=== PATIENT | male | born 1955 | race Caucasian/White ===

== ENCOUNTER 2017-05-22 07:01 | Outpatient (CLI) | payer OTHER ==
[2017-05-22 08:01] LABS: eGFR (African) > 60; eGFR (Non-African) > 60
== END 2017-05-22 07:10 ==
LOC: LAB 07:01
PROVIDERS: ATTEND Urology
DX: Z79.01 Long term (current) use of anticoagulants (principal)
CPT/HCPCS: 36415; 80053; 80061; 83002; 84153; 84402; 84403

== ENCOUNTER → 2017-07-12 | Outpatient (CLI) | payer OTHER ==
[2017-07-12 14:15] LABS: eGFR (African) > 60; eGFR (Non-African) > 60
== END ==
LOC: LAB 13:22
PROVIDERS: ATTEND Physician Assistant
DX: R42 Dizziness and giddiness (principal)
CPT/HCPCS: 36415; 80048

== ENCOUNTER 2017-07-16 16:04 | Outpatient (CLI) | payer OTHER | END 2017-07-16 16:05 | LOC: LAB 16:04 | PROVIDERS: ATTEND Physician Assistant | DX: R73.9 Hyperglycemia, unspecified (principal) | CPT/HCPCS: 36415; 83036 ==

== ENCOUNTER 2017-10-09 13:52 | Outpatient (CLI) | payer OTHER | END 2017-10-09 13:53 | LOC: LAB 13:52 | PROVIDERS: ATTEND Family Medicine | DX: Z11.59 Encounter for screening for other viral diseases (principal); Z20.2 Contact with and (suspected) exposure to infections with a predominantly sexual mode of transmission | CPT/HCPCS: 36415; 86703; 86803; 87491; 87591 ==

== ENCOUNTER 2019-04-10 07:19 | Outpatient (CLI) | payer OTHER ==
[2019-04-13 08:12] LABS: T3-UPTAKE SCANNED REPORT
[2019-04-13 08:17] LABS: A1C 5.3 % (<5.7); BASOPHILS % 0.4 % (0.0-1.5); NEUTROPHILS # 3.8 # k/uL (1.4-7.7); eGFR (Non-African) > 60
== END 2019-04-10 07:21 ==
LOC: LAB 07:19
PROVIDERS: ATTEND Family Medicine
DX: Z13.220 Encounter for screening for lipoid disorders (principal); Z13.29 Encounter for screening for other suspected endocrine disorder; Z13.0 Encounter for screening for diseases of the blood and blood-forming organs and certain disorders involving the immune mechanism; Z12.5 Encounter for screening for malignant neoplasm of prostate
CPT/HCPCS: 36415; 80053; 83036; 84153; 84436; 84479; 85025